=== PATIENT | male | born 1960 | race Two or more races ===

== ENCOUNTER 2018-02-06 07:45 | Emergency (ER) | payer MEDICAID ==
[2018-02-06] MEDS: KETOROLAC 30 MG INJ IM (08:28)
== END 2018-02-06 09:49 | disposition home or self-care (01) ==
LOC: FTE 07:45
DX: R05 Cough (principal); J02.9 Acute pharyngitis, unspecified; H92.09 Otalgia, unspecified ear
CPT/HCPCS: 71045; 87400; 96372; 99284-25

== ENCOUNTER 2018-03-11 10:28 | Emergency (ER) | payer MEDICAID ==
[2018-03-11] MEDS: KETOROLAC 30 MG INJ IM (11:25)
== END 2018-03-11 12:22 | disposition home or self-care (01) ==
LOC: FTE 10:28
DX: S49.91XA Unspecified injury of right shoulder and upper arm, initial encounter (principal); X58.XXXA Exposure to other specified factors, initial encounter; Y92.9 Unspecified place or not applicable
CPT/HCPCS: 73030; 73030-RT; 96372; 99284-25